=== PATIENT | female | born 1995 | race African-American/Black ===

== ENCOUNTER 2018-03-25 15:32 | Observation (INO) | payer MEDICAID ==
[~2018-03-25] VITALS: Ht 162.6 cm; Wt 75.7 kg
[2018-03-25] MEDS ORDERED: PNV1TABL76 PO (15:47)
== END 2018-03-25 16:33 | disposition home or self-care (01) ==
LOC: L&D 15:32
PROVIDERS: ADMIT Obstetrics & Gynecology; ATTEND Obstetrics & Gynecology
DX: O62.9 Abnormality of forces of labor, unspecified (principal); O48.1 Prolonged pregnancy; Z3A.40 40 weeks gestation of pregnancy
CPT/HCPCS: 99281; G0378